=== PATIENT | male | born 1975 | race Caucasian/White ===

== ENCOUNTER → 2018-02-21 | Day surgery (SDC) | payer OTHER, SELFPAY | END | disposition home or self-care (01) | PROVIDERS: Visit Provider Surgery | DX: K42.9 Umbilical hernia without obstruction or gangrene (principal) | CPT/HCPCS: 49585; C1781; J0461; J0690; J1100; J1885; J2250; J2405; J2704; J3010; J8501 ==

== ENCOUNTER → 2018-06-30 13:13 | Outpatient (CLI) | payer OTHER, SELFPAY ==
--- NOTE | 2018-06-30 | DI.US.S_ITS ---
PROCEDURE: US ABDOMEN COMPLETE INDICATIONS: JAUNDICE TECHNIQUE: Real-time scanning was performed of the abdominal and retroperitoneal organs, with image documentation. COMPARISON: None. FINDINGS: Liver: Liver is normal in size and homogeneous in echotexture. Gallbladder: No gallstones identified. Normal gallbladder wall. No pericholecystic fluid. Negative sonographic Green sign. Biliary ducts: Intrahepatic bile ducts are non-dilated. Extrahepatic bile duct caliber measures 5.0 mm. Normal is 6-7 mm or less in diameter, or 10 mm or less post-cholecystectomy. Pancreas: Visualized portions of the pancreas are sonographically normal. Spleen: Spleen is normal in size and homogeneous in echotexture. Kidneys: Kidneys are normal in size and echotexture. Right kidney measures 11.9 cm long; left kidney measures 12.9 cm long. No hydronephrosis or nephrolithiasis. No solid masses. Aorta: Visualized aorta is normal in caliber at less than 3 cm. Iliacs: Proximal common iliac arteries are normal in caliber at less than 2.5 cm. IVC: Intrahepatic inferior vena cava is patent. Miscellaneous: No free abdominal fluid. IMPRESSION: No source for jaundice identified sonographically. Dictated by: Jose OSBORN Interpreted: Hollie Sampson MD on 06/30/2018 at 15:40 Approved by: Patrick Barajas M.D. on 06/30/2018 at 16:22
== END ==
PROVIDERS: Family Provider Family Medicine; PCP Family Medicine; Visit Provider Family Medicine
DX: R17 Unspecified jaundice (principal)
CPT/HCPCS: 76700

== ENCOUNTER → 2021-06-17 10:50 | Outpatient (CLI) | payer OTHER, SELFPAY ==
[2021-06-17 19:46] LABS: COVID19 - ORCAS (NP or Nasal) Negative (Negative)
== END ==
PROVIDERS: Family Provider Family Medicine; PCP Family Medicine; Visit Provider Physician Assistant
DX: Z20.822 Contact with and (suspected) exposure to COVID-19 (principal)
CPT/HCPCS: U0003

== ENCOUNTER → 2021-09-07 09:39 | Outpatient (CLI) | payer OTHER, SELFPAY | PROVIDERS: Family Provider Family Medicine; PCP Physician Assistant; Visit Provider Physician Assistant | DX: T81.49XA Infection following a procedure, other surgical site, initial encounter (principal) | CPT/HCPCS: 87070; 87075; 87077; 87147; 87186; 87205 ==

== ENCOUNTER 2021-09-09 14:25 | Emergency (ER) | payer OTHER, SELFPAY ==
[2021-09-09 15:04] VITALS: BP 129/85; PULSE 76; RESP 18; TEMP 37; O2SAT 99; BMI 32.7
--- NOTE | 2021-09-09 17:51 | DI.CT.S_ITS ---
PROCEDURE: CT ABDOMEN PELVIS W CON INDICATIONS: abscess pubic area TECHNIQUE: After the administration of intravenous contrast, axial sections acquired from the lung bases to the pubic symphysis. Coronal and sagittal reformats were performed. For radiation dose reduction, the following was used: automated exposure control, adjustment of mA and/or kV according to patient size. COMPARISON: None. FINDINGS: Image quality: Excellent. Lung bases: Lung bases are clear. Heart: No significant findings. ABDOMEN: Liver: Unremarkable. Gallbladder: Gallbladder is unremarkable in CT appearance. Biliary ducts: Unremarkable. Pancreas: Unremarkable. Spleen: Unremarkable. Adrenal Glands: Unremarkable. Kidneys and Ureters: Unremarkable. Stomach and Bowel: Stomach, small bowel loops, and colon are unremarkable. Scattered colonic diverticulosis without acute diverticulitis. Peritoneum: No abnormal intraperitoneal fluid. No free air. Ventral Wall: No hernias. In the anterior lower abdominal wall just to the right of midline, there is diffuse skin thickening and moderate subcutaneous soft tissue stranding. There is a focus of superficial, subdermal fluid and gas without organized rim enhancement. It measures approximately 2.6 x 2.0 cm in size. Abdominal Nodes: No retroperitoneal or mesenteric adenopathy by size criteria. Vessels: Aorta and inferior vena cava are normal in size. PELVIS: Pelvic Organs: Unremarkable. Bladder: Unremarkable. Pelvic Nodes: No enlarged lymph nodes. Miscellaneous: No hernias are seen. Surgical clips in the right inguinal region likely from prior hernia repair. Bones: Unremarkable. IMPRESSION: 1. Skin thickening of the anterior lower abdominal wall just to the right of midline and above the inguinal region with moderate subcutaneous soft tissue inflammation. There is a small focus of ill-defined gas leading to the skin surface measuring approximately 2.6 x 2.0 cm in size. No visible organized fluid collection or rim enhancement. This likely represents cellulitis and likely early phlegmon formation. 2. Colonic diverticulosis without acute diverticulitis. Dictated by: Jr Kennedy M.D. on 09/09/2021 at 19:02 Approved by: Jr Kennedy M.D. on 09/09/2021 at 19:11
[2021-09-09 17:54] LABS: Add Manual Diff / Slide Review NO; Basophils Absolute Auto 100 /uL (0-100); Basophils Percent Auto 1.2 % (0-2); Eosinophils Absolute Auto 200 /uL (0-450); Eosinophils Percent Auto 2.5 % (2-4); Hematocrit 40.5 % (41-53); Lymphocytes Absolute Auto 1700 /uL (1100-4500); Lymphocytes Percent Auto 23.9 % (25-40); Mean Corpuscular HGB Conc 34.7 % (30-36); Mean Corpuscular Hemoglobin 31.2 PG (26-34); Mean Corpuscular Volume 90.1 fL (80-100); Monocytes Absolute Auto 600 /uL (0-900); Monocytes Percent Auto 8.1 % (3-14); Neutrophils Absolute Auto 4600 /uL (1500-7000); Neutrophils Percent Auto 64.3 % (50-75); Platelet Count 384 X10^3/uL (150-400); Red Cell Distribution Width 12.5 % (11.6-14.8); White Blood Cell Count 7.2 X10^3/uL (4.5-11.0)
[2021-09-09 18:01] LABS: Alanine Aminotransferase 19 IU/L (<50); Albumin 4.5 g/dL (3.5-5.0); Albumin Globulin Ratio 1.3 (1.0-2.8); Alkaline Phosphatase 53 U/L (38-126); Aspartate Aminotransferase 22 IU/L (17-59); BUN Creatinine Ratio 9.3 (6-22); Bilirubin Total 0.4 mg/dL (0.2-1.3); Blood Urea Nitrogen 10 mg/dL (9-20); Calcium 9.3 mg/dL (8.4-10.2); Carbon Dioxide 27 mmol/L (22-32); Chloride 103 mmol/L (98-107); Estimated Glomerular Filt Rate > 60.0 mL/min (>60); Globulin 3.4 g/dL (1.7-4.1); Glucose 107 mg/dL (70-100); HEMOLYSIS < 15 (0-50); Potassium 4.6 mmol/L (3.4-5.1); Sodium 139 mmol/L (137-145); Total Protein 7.9 g/dL (6.3-8.2)
[2021-09-09 18:02] LABS: Lactate (Lactic Acid) 0.9 mmol/L (0.7-2.1)
[2021-09-09 18:17] LABS: Procalcitonin 0.06 ng/mL (<0.5)
[2021-09-09] MEDS: MORPHINE 4 MG/ML INJ IV (18:18)
[2021-09-09] MEDS: ONDANSETRON 4 MG/2 ML INJ IV (18:18)
[2021-09-09 19:00] VITALS: BP 146/88; PULSE 64; O2SAT 100
--- NOTE | 2021-09-09 19:07 | ED.SKABFB ---
HPI - Skin/Abscess/Foreign Bdy <Beronica Patel, PICKING SUPERVISOR-BC - Last Filed: 09/09/21 20:28> General Chief complaint: Skin/Abscess/Foreign Body Stated complaint: Groin abscess x10 days Time Seen by Provider: 09/09/21 17:10 Source: patient Mode of arrival: Ambulatory Limitations: no limitations History of Present Illness HPI narrative: the patient is a 46-year-old male nonsmoker who presents with a chief complaint of an abscess on his lower stomach. He has a history of hypertension. He went to his primary care provider on 09/07 for an abscess that he noted last week. He states this started as a pimple and then grew. He has no known history of MRSA, had an I and D at that time, was started on Keflex and Bactrim. He denies any fevers nausea vomiting or diarrhea. His abscess is initially at 9 x 7 cm, and had packing placed. He return to the primary care provider's office, his culture resulted as MRSA, resistant to Bactrim. He was sent to the emergency department from the primary care provider's office due to lack of improvement on 2 days of antibiotics. Related Data Home Medications Medication Instructions Recorded Confirmed omega 4-sfy-dpy-fish oil 1,000 mg 1,000 mg PO QDAY #0 02/13/18 (120 mg-180 mg) capsule (Fish Oil) bupropion HCl 150 mg tablet,12 hr 150 mg PO BID 09/07/21 09/07/21 sustained-release Previous Rx's Medication Instructions Recorded varenicline 0.5 mg (11)-1 mg (42) 1 tab PO DIRECTED #1 pkg 02/21/17 tablets in a dose pack (Chantix Starting Month Box) docusate sodium 100 mg capsule 100 mg PO BID #14 cap 02/21/18 (Colace) ondansetron 4 mg disintegrating 4 mg SUBLINGUAL Q6HP PRN #10 odt 02/21/18 tablet (Zofran ODT) oxycodone 5 mg tablet 5 mg PO Q4HP PRN #30 tab 02/21/18 sennosides 8.6 mg tablet (Senokot) 8.6 mg PO QDAY #10 tab 02/21/18 cephalexin 500 mg capsule 500 mg PO QID #28 cap 09/07/21 ibuprofen 800 mg tablet 800 mg PO Q8H PRN #30 tab 09/07/21 sulfamethoxazole 800 1 tab PO Q12H #7 tab 09/07/21 mg-trimethoprim 160 mg tablet (Bactrim DS) doxycycline hyclate 100 mg capsule 100 mg PO BID #20 cap 09/09/21 ketorolac 10 mg tablet 10 mg PO TID PRN 5 Days #15 tab 09/09/21 Allergies Allergy/AdvReac Type Severity Reaction Status Date / Time blueberries Allergy Mild tingling Uncoded 02/21/18 12:00 tongue Review of Systems <ELIO Moran - Last Filed: 09/09/21 20:28> Review of Systems Narrative: GENERAL: Denies chills, fatigue, malaise, fever, sweats. HEENT: Denies sinus pain, ear pain, sore throat, difficulty swallowing, dizziness. RESPIRATORY: Denies dyspnea, cough, wheezing, hemoptysis, sputum. CARDIOVASCULAR: Denies chest pain, palpitations, orthopnea, edema, GASTROINTESTINAL: Denies nausea, vomiting, abdominal pain, diarrhea, constipation, melena. : Denies dysuria, frequency, incontinence, hematuria, urinary retention. MUSCULOSKELETAL: denies weakness, joint pain, or bony pain SKIN: see HPI NEUROLOGIC: Denies weakness, headache, numbness, change in speech, confusion, seizures, incoordination. PSYCHIATRIC: No concerning psychosocial issues. 12 point review of systems is negative except for those stated above Patient History <ELIO Moran - Last Filed: 09/09/21 20:28> Medical History (Updated 09/09/21 @ 20:08 by ELIO Moran) Respiratory infection Screening cholesterol level Social History Smoking Status: Never smoker Smoking Status: Never smoker Substance Use Type: does not use Exam <ELIO Moran - Last Filed: 09/09/21 20:28> Narrative Exam Narrative: GENERAL: This is a well-nourished, well-developed patient, in No acute distress HEAD: Atraumatic. Normocephalic. No temporal or scalp tenderness. EYES: Pupils equal round and reactive. Extraocular motions intact. No scleral icterus. No injection or drainage. ENT: Nose without bleeding, purulent drainage or septal hematoma. wearing a mask. Airway patent. NECK: Trachea midline. No JVD or lymphadenopathy. Supple, nontender, no meningeal signs. CARDIOVASCULAR: Regular rate and rhythm. RESPIRATORY: no cough. No increased respiratory effort. No accessory no muscle use. GASTROINTESTINAL: Abdomen soft, non-tender, nondistended. No hepato-splenomegaly, or palpable masses. EXTREMITIES: No clubbing, cyanosis, or edema. No joint tenderness, effusion, or edema noted. BACK: Nontender without deformity or crepitance. No flank tenderness. NEURO: AOx3. SKIN: Abscess noted in suprapubic area with packing intact, purulent drainage noted, 15 x 9 cm erythema at its largest, outlined in sharpie Initial Vital Signs Initial Vital Signs: Vital Signs Temperature 98.6 F 09/09/21 15:04 Pulse Rate 76 09/09/21 15:04 Respiratory Rate 18 09/09/21 15:04 Blood Pressure 129/85 09/09/21 15:04 Pulse Oximetry 99 09/09/21 15:04 <Haim Shankar DO - Last Filed: 09/10/21 03:27> Initial Vital Signs Initial Vital Signs: Vital Signs Temperature 98.6 F 09/09/21 15:04 Pulse Rate 76 09/09/21 15:04 Respiratory Rate 18 09/09/21 15:04 Blood Pressure 129/85 09/09/21 15:04 Pulse Oximetry 99 09/09/21 15:04 Scores <ELIO Moran - Last Filed: 09/09/21 20:28> GCS [place] coma scale eye opening: Spontaneous [place] coma scale verbal response: Orientated [place] coma scale motor response: Obey commands [place] coma scale total score: 15 qSOFA Altered Mental Status (GCS <15): No Respiratory rate greater than/equal to 22: No Systolic blood pressure less than or equal to 100: No qSOFA Total: 0 0-1 Not High Risk 1-3 High risk <DO Elisa Hogan Last Filed: 09/10/21 03:27> GCS [place] coma scale total score: 15 qSOFA qSOFA Total: 0 Course <ELIO Moran - Last Filed: 09/09/21 20:28> Orders Ordered: ED Orders 09/09/21 18:38 Blood Culture Stat Discontinued Medications Vancomycin HCl/Dextrose (Vancomycin) 2,000 mg in 400 mls @ 200 mls/hr IV NOW ONE Stop: 09/09/21 21:49 Last Infusion: 09/09/21 22:24 Dose: 0 mls/hr Documented by: Admin: 09/09/21 20:21 Dose: 200 mls/hr Documented by: ARASH Ketorolac Tromethamine (Ketorolac 30 Mg/Ml Vial) 30 mg IV NOW ONE Stop: 09/09/21 19:57 Last Admin: 09/09/21 20:21 Dose: 30 mg Documented by: ARASH Morphine Sulfate (Morphine 4 Mg/Ml Inj) 4 mg IV NOW ONE Stop: 09/09/21 18:07 Last Admin: 09/09/21 18:18 Dose: 4 mg Documented by: MARIO Ondansetron HCl (Ondansetron 4 Mg/2 Ml Inj) 4 mg IV NOW ONE Stop: 09/09/21 18:07 Last Admin: 09/09/21 18:18 Dose: 4 mg Documented by: MARIO Vital Signs Vital signs: Vital Signs - 8 hr 09/09/21 20:34 09/09/21 22:46 Pulse Rate 53 L 60 Respiratory Rate 15 16 Blood Pressure 141/71 H 138/71 Pulse Oximetry 97 97 <Haim Shankar DO - Last Filed: 09/10/21 03:27> Orders Ordered: ED Orders 09/09/21 18:38 Blood Culture Stat Discontinued Medications Vancomycin HCl/Dextrose (Vancomycin) 2,000 mg in 400 mls @ 200 mls/hr IV NOW ONE Stop: 09/09/21 21:49 Last Infusion: 09/09/21 22:24 Dose: 0 mls/hr Documented by: Admin: 09/09/21 20:21 Dose: 200 mls/hr Documented by: ARASH Ketorolac Tromethamine (Ketorolac 30 Mg/Ml Vial) 30 mg IV NOW ONE Stop: 09/09/21 19:57 Last Admin: 09/09/21 20:21 Dose: 30 mg Documented by: ARASH Morphine Sulfate (Morphine 4 Mg/Ml Inj) 4 mg IV NOW ONE Stop: 09/09/21 18:07 Last Admin: 09/09/21 18:18 Dose: 4 mg Documented by: MARIO Ondansetron HCl (Ondansetron 4 Mg/2 Ml Inj) 4 mg IV NOW ONE Stop: 09/09/21 18:07 Last Admin: 09/09/21 18:18 Dose: 4 mg Documented by: MARIO Vital Signs Vital signs: Vital Signs - 8 hr 09/09/21 20:34 09/09/21 22:46 Pulse Rate 53 L 60 Respiratory Rate 15 16 Blood Pressure 141/71 H 138/71 Pulse Oximetry 97 97 MDM - Skin/Abscess/Foreign Bdy <TANVIR Moran-BC - Last Filed: 09/09/21 20:28> Differential Diagnosis Differential diagnosis: Likely abscess of skin or subcutaneous tissue Lab Data Attestation: I reviewed the patient's lab results. Result diagrams: 09/09/21 17:28 09/09/21 17:28 Labs: Lab Results 09/09/21 09/09/21 09/09/21 Range/Units 17:28 17:28 17:28 WBC 7.2 (4.5-11.0) X10^3/uL RBC 4.50 (4.5-5.9) X10^6/uL Hgb 14.0 (13.5-17.5) g/dL Hct 40.5 L (41-53) % MCV 90.1 (80-100) fL MCH 31.2 (26-34) PG MCHC 34.7 (30-36) % RDW 12.5 (11.6-14.8) % Plt Count 384 (150-400) X10^3/uL Neut % (Auto) 64.3 (50-75) % Lymph % (Auto) 23.9 L (25-40) % Barron % (Auto) 8.1 (3-14) % Eos % (Auto) 2.5 (2-4) % Baso % (Auto) 1.2 (0-2) % Neut # (Auto) 4600 (7231-9964) /uL Lymph # (Auto) 1700 (1747-9756) /uL Barron # (Auto) 600 (0-900) /uL Eos # (Auto) 200 (0-450) /uL Baso # (Auto) 100 (0-100) /uL Sodium 139 (137-145) mmol/L Potassium 4.6 (3.4-5.1) mmol/L Chloride 103 (98-107) mmol/L Carbon Dioxide 27 (22-32) mmol/L BUN 10 (9-20) mg/dL Creatinine 1.07 (0.66-1.25) mg/dL Estimated GFR > 60.0 (>60) mL/min BUN/Creatinine Ratio 9.3 (6-22) Glucose 107 H (70-100) mg/dL Lactate 0.9 (0.7-2.1) mmol/L Calcium 9.3 (8.4-10.2) mg/dL Total Bilirubin 0.4 (0.2-1.3) mg/dL AST 22 (17-59) IU/L ALT 19 (<50) IU/L Alkaline Phosphatase 53 (38-126) U/L Total Protein 7.9 (6.3-8.2) g/dL Albumin 4.5 (3.5-5.0) g/dL Globulin 3.4 (1.7-4.1) g/dL Albumin/Globulin Ratio 1.3 (1.0-2.8) Procalcitonin 0.06 (<0.5) ng/mL Urine Dip Bedside Urine Glucose Negative Bedside Urine Bilirubin - Negative Bedside Urine Ketone - Negative Urine Specific [place] 1.015 Bedside Urine Occult Blood - Negative Bedside Urine pH 6.0 Bedside Urine Protein - Negative Bedside Urine Urobilinogen - Negative Bedside Urine Nitrite - Negative Bedside Urine Leukocytes - Negative Esterase Imaging Data CT scan - abdomen/pelvis: Radiologist's Impression: [address] [place] [id number] Scan Report Signed Patient: Rodolfo Kelly MR#: [id number] : 1975 Acct:[id number] Age/Sex: 46 / M Date of Service: 09/09/21 Loc: ED Accession Number: [id number] ?? Procedure: CT abdomen pelvis w con [facility]ing [facility]:? CT ABDOMEN PELVIS W CON ? INDICATIONS:? abscess pubic area ? TECHNIQUE:? After the administration of intravenous contrast, axial sections acquired from the lung bases to the pubic symphysis.? Coronal and sagittal reformats were performed.? For radiation dose reduction, the following was used:? automated exposure control, adjustment of mA and/or kV according to patient size.? ? COMPARISON:? None. ? FINDINGS:? Image quality:? Excellent.? ? Lung bases:? Lung bases are clear. Heart:? No significant findings. ? ABDOMEN: Liver:? Unremarkable.? ? Gallbladder:? Gallbladder is unremarkable in CT appearance. Biliary ducts:? Unremarkable.? ? Pancreas:? Unremarkable.? ? Spleen:? Unremarkable.? ? Adrenal Glands:? Unremarkable.? ? Kidneys and Ureters:? Unremarkable.? ? ? Stomach and Bowel:? Stomach, small bowel loops, and colon are unremarkable.? Scattered colonic diverticulosis without acute diverticulitis. Peritoneum:? No abnormal intraperitoneal fluid.? No free air.? ? Ventral Wall: ? No hernias.? In the anterior lower abdominal wall just to the right of midline, there is diffuse skin thickening and moderate subcutaneous soft tissue stranding.? There is a focus of superficial, subdermal fluid and gas without organized rim enhancement.? It measures approximately 2.6 x 2.0 cm in size.? Abdominal Nodes:? No retroperitoneal or mesenteric adenopathy by size criteria.? Vessels:? Aorta and inferior vena cava are normal in size.? ? PELVIS: Pelvic Organs:? Unremarkable.? ? Bladder:? Unremarkable.? ? Pelvic Nodes: No enlarged lymph nodes.? Miscellaneous: No hernias are seen.? Surgical clips in the right inguinal region likely from prior hernia repair. ? ? Bones:? Unremarkable.? IMPRESSION:? ? 1. Skin thickening of the anterior lower abdominal wall just to the right of midline and above the inguinal region with moderate subcutaneous soft tissue inflammation.? There is a small focus of ill-defined gas leading to the skin surface measuring approximately 2.6 x 2.0 cm in size.? No visible organized fluid collection or rim enhancement.? This likely represents cellulitis and likely early phlegmon formation. ? 2. Colonic diverticulosis without acute diverticulitis.? ? ? Dictated by: Jr Kennedy M.D. on 09/09/2021 at 19:02 ? ? Approved by: Jr Kennedy M.D. on 09/09/2021 at 19:11 ? [facility] Narrative Medical decision making narrative: The patient is a 46-year-old male who presents with a chief complaint of an abscess not improving despite p.o. antibiotics. Cultures were reviewed and was noted that he was on antibiotics resistant to his MRSA infection. He appears well, is afebrile, no signs of systemic illness. Lab work is reassuring, no leukocytosis, no elevated procalcitonin, negative lactate. CT was done, which shows no abscess to drain, superficial involvement. Discussed at length with patient we could discharge him with correct p.o. antibiotics versus admit, patient states that he can go to a hotel in come back to the emergency department if he is feeling worse. Discussed case with Dr. Jain, who is in accordance with plan of care. Discussed at length signs of strict return precautions including high fever, inability keep down fluids etcetera. Patient was given a dose of IV vancomycin prior to discharge. He remains feeling well, nontoxic afebrile in the emergency department. he states understanding strict return precautions as well as follow-up care. Discussed keeping his wound clean and dry, no swimming. Patient to dc after IV abx. <Haim Shankar, - Last Filed: 09/10/21 03:27> Lab Data Labs: Lab Results 09/09/21 09/09/21 09/09/21 Range/Units 17:28 17:28 17:28 WBC 7.2 (4.5-11.0) X10^3/uL RBC 4.50 (4.5-5.9) X10^6/uL Hgb 14.0 (13.5-17.5) g/dL Hct 40.5 L (41-53) % MCV 90.1 (80-100) fL MCH 31.2 (26-34) PG MCHC 34.7 (30-36) % RDW 12.5 (11.6-14.8) % Plt Count 384 (150-400) X10^3/uL Neut % (Auto) 64.3 (50-75) % Lymph % (Auto) 23.9 L (25-40) % Barron % (Auto) 8.1 (3-14) % Eos % (Auto) 2.5 (2-4) % Baso % (Auto) 1.2 (0-2) % Neut # (Auto) 4600 (6645-4840) /uL Lymph # (Auto) 1700 (9265-1557) /uL Barron # (Auto) 600 (0-900) /uL Eos # (Auto) 200 (0-450) /uL Baso # (Auto) 100 (0-100) /uL Sodium 139 (137-145) mmol/L Potassium 4.6 (3.4-5.1) mmol/L Chloride 103 (98-107) mmol/L Carbon Dioxide 27 (22-32) mmol/L BUN 10 (9-20) mg/dL Creatinine 1.07 (0.66-1.25) mg/dL Estimated GFR > 60.0 (>60) mL/min BUN/Creatinine Ratio 9.3 (6-22) Glucose 107 H (70-100) mg/dL Lactate 0.9 (0.7-2.1) mmol/L Calcium 9.3 (8.4-10.2) mg/dL Total Bilirubin 0.4 (0.2-1.3) mg/dL AST 22 (17-59) IU/L ALT 19 (<50) IU/L Alkaline Phosphatase 53 (38-126) U/L Total Protein 7.9 (6.3-8.2) g/dL Albumin 4.5 (3.5-5.0) g/dL Globulin 3.4 (1.7-4.1) g/dL Albumin/Globulin Ratio 1.3 (1.0-2.8) Procalcitonin 0.06 (<0.5) ng/mL Urine Dip Bedside Urine Glucose Negative Bedside Urine Bilirubin - Negative Bedside Urine Ketone - Negative Urine Specific Liberty 1.015 Bedside Urine Occult Blood - Negative Bedside Urine pH 6.0 Bedside Urine Protein - Negative Bedside Urine Urobilinogen - Negative Bedside Urine Nitrite - Negative Bedside Urine Leukocytes - Negative Esterase Discharge Plan Departure Patient Disposition: Home Clinical Impression: Cellulitis Qualifiers: Site of cellulitis: trunk Site of cellulitis of trunk: abdominal wall Qualified Code(s): L03.311 - Cellulitis of abdominal wall Abscess of skin or subcutaneous tissue Qualifiers: Site of cutaneous abscess: trunk Site of cutaneous abscess of trunk: abdominal wall Qualified Code(s): L02.211 - Cutaneous abscess of abdominal wall Instructions: DI for Cellulitis -- Adult, DI for Skin Abscess Activity Restrictions/Additional Instructions: thank you for trusting us with your care today. As discussed, your CT is concerning for inflammation and skin infection, but no obvious abscess. We have given you an IV antibiotic tonight, and I sent 2 prescriptions to [facility] in in accordance. Please pick these up in the morning and start your antibiotic pill tomorrow morning. I also sent a prescription of ketorolac or Toradol. Toradol as an NSAID. Do not combine this with any other NSAIDs such as ibuprofen or aleve. Please follow-up with primary care provider tomorrow. As discussed please come back to the emergency department for any acute concerns including inability keep down fluids, high fevers etcetera. Prescriptions: New doxycycline hyclate 100 mg capsule 100 mg PO BID Qty: 20 RF: 0 ketorolac 10 mg tablet 10 mg PO TID PRN (Reason: pain) 5 Days Qty: 15 RF: 0 No Action varenicline [Chantix Starting Month Box] 1 EACH tablets,dose pack 1 tab PO DIRECTED Qty: 1 RF: 0 omega 8-qwc-mfv-fish oil [Fish Oil] 1,000 MG capsule 1,000 mg PO QDAY Qty: 0 RF: 0 docusate sodium [Colace] 100 MG capsule 100 mg PO BID Qty: 14 RF: 1 oxycodone 5 MG tablet 5 mg PO Q4HP PRNQty: 30 RF: 0 sennosides [Senokot] 8.6 MG tablet 8.6 mg PO QDAY Qty: 10 RF: 1 ondansetron [Zofran ODT] 4 MG tablet,disintegrating 4 mg Sublingual Q6HP PRNQty: 10 RF: 1 bupropion HCl 150 mg tablet sustained-release 12 hr 150 mg PO BID RF: 0 sulfamethoxazole-trimethoprim [Bactrim DS] 800-160 mg tablet 1 tab PO Q12H Qty: 7 RF: 0 cephalexin 500 mg capsule 500 mg PO QID Qty: 28 RF: 0 ibuprofen 800 mg tablet 800 mg PO Q8H PRN (Reason: pain) Qty: 30 RF: 0 Referrals: Ludmila Webster PA-C [Primary Care Provider] - <Haim Shankar DO - Last Filed: 09/10/21 03:27> Cosign ED Attending Cospilyature Attestation: I was immediately available in the department for consultation. This documentation has been reviewed and I agree with assessment and plan. Supervised by Haim Shankar DO
[2021-09-09] MEDS: VANCOMYCIN 2,000 MG/400 ML PIGGYBACK 200 MG IV (20:21)
[2021-09-09] MEDS: KETOROLAC 30 MG/ML VIAL IV (20:21)
[2021-09-09 20:34] VITALS: BP 141/71; PULSE 53; RESP 15; O2SAT 97
[2021-09-09 22:46] VITALS: BP 138/71; PULSE 60; RESP 16; O2SAT 97
== END 2021-09-09 22:30 | disposition home or self-care (01) ==
PROVIDERS: Emergency Provider Nurse Practitioner Family; Family Provider Family Medicine; PCP Physician Assistant
DX: L03.311 Cellulitis of abdominal wall (principal); B95.62 Methicillin resistant Staphylococcus aureus infection as the cause of diseases classified elsewhere; L02.211 Cutaneous abscess of abdominal wall
CPT/HCPCS: 36415; 74177; 80053; 81003; 83605; 84145; 85025; 87040; 96365; 96366; 96375; 99284; J1885; J2270; J2405

== ENCOUNTER → 2021-10-13 14:22 | Outpatient (CLI) | payer OTHER, SELFPAY | PROVIDERS: Family Provider Family Medicine; PCP Physician Assistant; Visit Provider Physician Assistant | DX: R23.4 Changes in skin texture (principal) | CPT/HCPCS: 87070; 87075; 87205 ==

== ENCOUNTER → 2021-10-22 08:22 | Outpatient (CLI) | payer OTHER, SELFPAY ==
[2021-10-22 19:22] LABS: Hemoglobin A1C% w Est Avg Glu 5.6 % (4.0-6.0)
[2021-10-22 19:25] LABS: Cholesterol 214 mg/dL (140-199); HDL Cholesterol 38 mg/dL (40-60); LDL Cholesterol Calculated 155 mg/dL (<100); Triglycerides 105 mg/dL (35-150)
== END ==
PROVIDERS: Family Provider Family Medicine; PCP Physician Assistant; Referring Provider Physician Assistant; Visit Provider Physician Assistant
DX: Z13.220 Encounter for screening for lipoid disorders (principal)
CPT/HCPCS: 80061; 83036

== ENCOUNTER → 2022-02-15 10:35 | Outpatient (CLI) | payer OTHER, SELFPAY | PROVIDERS: Family Provider Family Medicine; PCP Physician Assistant; Visit Provider Family Medicine | DX: R10.9 Unspecified abdominal pain (principal) | CPT/HCPCS: 87086 ==

== ENCOUNTER → 2022-06-24 08:13 | Outpatient (CLI) | payer SELFPAY ==
[2022-06-24 19:58] LABS: Add Manual Diff / Slide Review NO; Basophils Absolute Auto 100 /uL (0-100); Basophils Percent Auto 0.9 % (0-2); Eosinophils Absolute Auto 300 /uL (0-450); Eosinophils Percent Auto 5.2 % (2-4); Hematocrit 42.8 % (41-53); Hemoglobin 14.6 g/dL (13.5-17.5); Lymphocytes Absolute Auto 1900 /uL (1100-4500); Lymphocytes Percent Auto 32.1 % (25-40); Mean Corpuscular HGB Conc 34.2 % (30-36); Mean Corpuscular Hemoglobin 30.9 PG (26-34); Mean Corpuscular Volume 90.4 fL (80-100); Monocytes Absolute Auto 400 /uL (0-900); Neutrophils Absolute Auto 3200 /uL (1500-7000); Neutrophils Percent Auto 54.8 % (50-75); Platelet Count 320 X10^3/uL (150-400); Red Blood Cell Count 4.73 X10^6/uL (4.5-5.9); Red Cell Distribution Width 12.7 % (11.6-14.8); White Blood Cell Count 5.9 X10^3/uL (4.5-11.0)
[2022-06-24 20:01] LABS: Cholesterol 185 mg/dL (140-199); HDL Cholesterol 34 mg/dL (40-60); LDL Cholesterol Calculated 137 mg/dL (<100); Triglycerides 69 mg/dL (35-150)
== END ==
PROVIDERS: Family Provider Family Medicine; PCP Physician Assistant; Visit Provider Physician Assistant Medical
DX: D64.9 Anemia, unspecified (principal); E78.5 Hyperlipidemia, unspecified; L08.9 Local infection of the skin and subcutaneous tissue, unspecified; L85.3 Xerosis cutis
CPT/HCPCS: 80061; 85025

== ENCOUNTER → 2023-01-13 14:11 | Outpatient (CLI) | payer SELFPAY ==
[2023-01-13 19:50] LABS: Alanine Aminotransferase 36 IU/L (<50); Albumin 4.4 g/dL (3.5-5.0); Albumin Globulin Ratio 1.5 (1.0-2.8); Alkaline Phosphatase 57 U/L (38-126); Aspartate Aminotransferase 33 IU/L (17-59); BUN Creatinine Ratio 10.8 (6-22); Bilirubin Total 0.6 mg/dL (0.2-1.3); Blood Urea Nitrogen 11 mg/dL (9-20); Calcium 8.9 mg/dL (8.4-10.2); Carbon Dioxide 26 mmol/L (22-32); Chloride 103 mmol/L (98-107); Estimated Glomerular Filt Rate > 60 mL/min (>60); Globulin 2.9 g/dL (1.7-4.1); Glucose 126 mg/dL (70-100); HEMOLYSIS < 15 (0-50); Potassium 4.1 mmol/L (3.4-5.1); Sodium 140 mmol/L (137-145); Total Protein 7.3 g/dL (6.3-8.2)
[2023-01-13 20:04] LABS: Hemoglobin A1C% w Est Avg Glu 5.7 % (4.0-6.0)
== END ==
PROVIDERS: Family Provider Family Medicine; PCP Physician Assistant; Visit Provider Physician Assistant
DX: B35.1 Tinea unguium (principal); R73.03 Prediabetes
CPT/HCPCS: 80053; 83036

== ENCOUNTER → 2023-01-28 13:16 | Outpatient (CLI) | payer SELFPAY ==
--- NOTE | 2023-02-04 12:02 | PM.PFT.1 ---
Pulmonary Function Test Referral & Results Date Patient Seen: 01/28/23 Results: The spirometry demonstrates an FVC of 5.03 L which is 88% of predicted. The FEV1 was measured at 4.14 L which is 93% of predicted. The FEV1/FVC ratio was 82 which is 105% of predicted. Following the administration of bronchodilator there was a 42% improvement in FEF 25-75%. Lung volumes show an SVC of 5.82 L which is 107% of predicted. The diffusing capacity was measured at 41.09 which is 112% of predicted. The maximum voluntary ventilation was minimally reduced Interpretation: This study demonstrates probably normal pulmonary function. There may be a minimal reduction in maximum voluntary ventilation which in the absence of any other abnormalities might suggest the presence of some element of neuromuscular disease Clinical correlation suggested
== END ==
PROVIDERS: Family Provider Family Medicine; PCP Family Medicine; Referring Provider Physician Assistant; Visit Provider Physician Assistant
DX: R06.2 Wheezing (principal); J98.8 Other specified respiratory disorders
CPT/HCPCS: 94060; 94726; 94729

== ENCOUNTER → 2023-08-25 09:27 | Outpatient (CLI) | payer SELFPAY ==
[2023-08-25 21:36] LABS: Creatinine Urine Random 221.1 mg/dL; Protein (Total) Urine Random 25 mg/dL (0-12); Protein Creatinine Ratio Urine 0.11 GRAM/24H
== END ==
PROVIDERS: Family Provider Family Medicine; PCP Family Medicine; Visit Provider Family Medicine
DX: I10 Essential (primary) hypertension (principal); R80.9 Proteinuria, unspecified
CPT/HCPCS: 82570; 84156

== ENCOUNTER → 2023-12-27 08:21 | Outpatient (CLI) | payer SELFPAY ==
[2023-12-27 19:44] LABS: Protein (Total) Urine Random 10 mg/dL (0-12)
[2023-12-27 20:29] LABS: Protein Creatinine Ratio Urine 0.01 GRAM/24H
== END ==
PROVIDERS: Family Provider Family Medicine; PCP Family Medicine; Visit Provider Family Medicine
DX: R80.9 Proteinuria, unspecified (principal); I10 Essential (primary) hypertension
CPT/HCPCS: 82570; 84156

== ENCOUNTER → 2023-12-29 09:49 | Outpatient (CLI) | payer SELFPAY ==
[2023-12-29 19:25] LABS: Hemoglobin A1C% w Est Avg Glu 5.5 % (4.0-6.0)
[2023-12-29 19:30] LABS: Add Manual Diff / Slide Review NO; Basophils Absolute Auto 0 /uL (0-100); Basophils Percent Auto 0.6 % (0-2); Eosinophils Absolute Auto 200 /uL (0-450); Eosinophils Percent Auto 3.6 % (2-4); Hematocrit 46.1 % (41-53); Hemoglobin 15.9 g/dL (13.5-17.5); Lymphocytes Absolute Auto 1800 /uL (1100-4500); Lymphocytes Percent Auto 35.1 % (25-40); Mean Corpuscular HGB Conc 34.4 % (30-36); Mean Corpuscular Hemoglobin 31.3 PG (26-34); Mean Corpuscular Volume 91.1 fL (80-100); Monocytes Absolute Auto 300 /uL (0-900); Monocytes Percent Auto 6.4 % (3-14); Neutrophils Absolute Auto 2900 /uL (1500-7000); Neutrophils Percent Auto 54.3 % (50-75); Platelet Count 282 X10^3/uL (150-400); Red Blood Cell Count 5.07 X10^6/uL (4.5-5.9); Red Cell Distribution Width 12.8 % (11.6-14.8); White Blood Cell Count 5.3 X10^3/uL (4.5-11.0)
[2023-12-29 19:36] LABS: Alanine Aminotransferase 37 IU/L (<50); Albumin 4.6 g/dL (3.5-5.0); Albumin Globulin Ratio 1.6 (1.0-2.8); Alkaline Phosphatase 59 U/L (38-126); Aspartate Aminotransferase 62 IU/L (17-59); BUN Creatinine Ratio 12.5 (6-22); Bilirubin Total 0.9 mg/dL (0.2-1.3); Blood Urea Nitrogen 17 mg/dL (9-20); Calcium 9.4 mg/dL (8.4-10.2); Carbon Dioxide 28 mmol/L (22-32); Chloride 106 mmol/L (98-107); Cholesterol 195 mg/dL (140-199); Estimated Glomerular Filt Rate > 60 mL/min (>60); Globulin 2.8 g/dL (1.7-4.1); Glucose 101 mg/dL (70-100); HDL Cholesterol 29 mg/dL (40-60); HEMOLYSIS < 15 (0-50); LDL Cholesterol Calculated 146 mg/dL (<100); Potassium 4.8 mmol/L (3.4-5.1); Sodium 139 mmol/L (137-145); Total Protein 7.4 g/dL (6.3-8.2); Triglycerides 100 mg/dL (35-150)
[2023-12-29 19:56] LABS: TSH w/ Reflex to FT4 1.72 uIU/mL (0.47-4.68)
== END ==
PROVIDERS: Family Provider Family Medicine; PCP Family Medicine; Visit Provider Family Medicine
DX: I10 Essential (primary) hypertension (principal); R80.9 Proteinuria, unspecified; R73.03 Prediabetes; E78.5 Hyperlipidemia, unspecified
CPT/HCPCS: 80053; 80061; 83036; 84443; 85025

== ENCOUNTER → 2024-05-15 10:59 | Outpatient (CLI) | payer SELFPAY ==
[2024-05-15 21:10] LABS: Alanine Aminotransferase 30 IU/L (<50); Albumin 4.5 g/dL (3.5-5.0); Albumin Globulin Ratio 1.6 (1.0-2.8); Alkaline Phosphatase 62 U/L (38-126); Aspartate Aminotransferase 32 IU/L (17-59); Bilirubin Total 0.6 mg/dL (0.2-1.3); Blood Urea Nitrogen 20 mg/dL (9-20); Calcium 9.3 mg/dL (8.4-10.2); Carbon Dioxide 26 mmol/L (22-32); Chloride 107 mmol/L (98-107); Globulin 2.8 g/dL (1.7-4.1); Glucose 86 mg/dL (70-100); Potassium 4.7 mmol/L (3.4-5.1); Sodium 140 mmol/L (137-145); Total Protein 7.3 g/dL (6.3-8.2)
[2024-05-15 21:17] LABS: BUN Creatinine Ratio 12.2 (6-22); Estimated Glomerular Filt Rate 52 mL/min (>60); HEMOLYSIS 26 (0-50)
[2024-05-15 21:43] LABS: Ferritin 123 ng/mL (18-464)
[2024-05-15 22:23] LABS: HEMOLYSIS 16 (0-50); Iron 112 ug/dL (49-181)
[2024-05-15 22:37] LABS: Percent Iron Saturation 38 % (20-50); Total Iron Binding Capacity 296 ug/dL (261-462)
[2024-05-17 00:22] LABS: Hepatitis B Surf Ab Qualitativ Reactive (.)
== END ==
PROVIDERS: Family Provider Family Medicine; PCP Family Medicine; Referring Provider Family Medicine; Visit Provider Family Medicine
DX: I10 Essential (primary) hypertension (principal); R74.01 Elevation of levels of liver transaminase levels; G47.10 Hypersomnia, unspecified; J30.2 Other seasonal allergic rhinitis
CPT/HCPCS: 80053; 82728; 83540; 83550; 86704; 86706; 86803; 87340

== ENCOUNTER → 2024-08-23 08:38 | Outpatient (CLI) | payer SELFPAY ==
[2024-08-23 20:32] LABS: Alanine Aminotransferase 35 IU/L (<50); Albumin 4.3 g/dL (3.5-5.0); Albumin Globulin Ratio 1.5 (1.0-2.8); Alkaline Phosphatase 66 U/L (38-126); Aspartate Aminotransferase 48 IU/L (17-59); Bilirubin Total 0.7 mg/dL (0.2-1.3); Blood Urea Nitrogen 20 mg/dL (9-20); Calcium 9.3 mg/dL (8.4-10.2); Carbon Dioxide 25 mmol/L (22-32); Chloride 104 mmol/L (98-107); Globulin 2.8 g/dL (1.7-4.1); Glucose 88 mg/dL (70-100); HEMOLYSIS 45 (0-50); Potassium 4.4 mmol/L (3.4-5.1); Sodium 138 mmol/L (137-145); Total Protein 7.1 g/dL (6.3-8.2)
[2024-08-23 20:38] LABS: BUN Creatinine Ratio 12.3 (6-22); Estimated Glomerular Filt Rate 52 mL/min (>60)
[2024-08-23 20:55] LABS: Creatinine Urine Random 236.06 mg/dL; Protein (Total) Urine Random 36 mg/dL (0-12); Protein Creatinine Ratio Urine 0.15 GRAM/24H
== END ==
PROVIDERS: Family Provider Family Medicine; PCP Family Medicine; Visit Provider Family Medicine
DX: R94.4 Abnormal results of kidney function studies (principal); R74.01 Elevation of levels of liver transaminase levels; R80.9 Proteinuria, unspecified; I10 Essential (primary) hypertension; E78.00 Pure hypercholesterolemia, unspecified; R73.03 Prediabetes
CPT/HCPCS: 80053; 82570; 84156

== ENCOUNTER → 2025-02-26 11:00 | Outpatient (CLI) | payer SELFPAY ==
[2025-02-26 19:14] LABS: Alanine Aminotransferase 75 IU/L (<50); Albumin 4.9 g/dL (3.5-5.0); Alkaline Phosphatase 60 U/L (38-126); Aspartate Aminotransferase 47 IU/L (17-59); Bilirubin Total 0.4 mg/dL (0.2-1.3); Blood Urea Nitrogen 22 mg/dL (9-20); Calcium 9.5 mg/dL (8.4-10.2); Carbon Dioxide 22 mmol/L (22-32); Chloride 105 mmol/L (98-107); Globulin 2.5 g/dL (1.7-4.1); Glucose 88 mg/dL (70-99); Potassium 4.6 mmol/L (3.4-5.1); Sodium 140 mmol/L (137-145); Total Protein 7.4 g/dL (6.3-8.2)
[2025-02-26 19:16] LABS: Hemoglobin A1C% w Est Avg Glu 5.3 % (4.0-6.0)
[2025-02-26 19:20] LABS: BUN Creatinine Ratio 15.5 (6-22); Estimated Glomerular Filt Rate > 60 mL/min (>60); HEMOLYSIS 37 (0-50)
[2025-02-26 19:23] LABS: Appearance Urine UA CLEAR; Bilirubin Urine UA NEGATIVE (NEGATIVE); Color Urine UA YELLOW; Glucose Urine UA NEGATIVE (Negative); Ketones Urine UA TRACE (NEGATIVE); Leukocyte Esterase Urine UA NEGATIVE (NEGATIVE); Nitrite Urine UA NEGATIVE (Negative); Occult Blood Urine UA NEGATIVE (Negative); Protein Urine UA NEGATIVE (Negative); Specific Gravity Urine UA 1.025 (1.000-1.035); Urobilinogen Urine UA 0.2 E.U./dL (0.2)
[2025-02-26 19:33] LABS: Bacteria Urine None Seen; RBC Urine None Seen (0-5/HPF); Squamous Epithelial Cell Urine 0-1 /HPF (0-5/HPF); Urine Volume 10mL (spun); WBC Urine None Seen (0-5/HPF)
[2025-02-26 19:34] LABS: Culture Indicated Urine Cult Not Indicated
[2025-02-26 20:03] LABS: Protein (Total) Urine Random 14 mg/dL (0-12)
[2025-02-26 20:21] LABS: Creatinine Urine Random 92.81 mg/dL; Protein Creatinine Ratio Urine 0.15 GRAM/24H
== END ==
PROVIDERS: PCP Family Medicine; Visit Provider Family Medicine
DX: R94.4 Abnormal results of kidney function studies (principal); R80.9 Proteinuria, unspecified; I10 Essential (primary) hypertension; R25.2 Cramp and spasm; R74.01 Elevation of levels of liver transaminase levels; R73.03 Prediabetes
CPT/HCPCS: 80053; 81001; 82570; 83036; 84156

== ENCOUNTER → 2025-08-23 08:29 | Outpatient (CLI) | payer SELFPAY ==
[2025-08-23 20:37] LABS: Microalbumi Creatinin Ratio Ur 6.0 ug/mg CR (<30)
== END ==
PROVIDERS: PCP Family Medicine; Visit Provider Family Medicine
DX: R73.03 Prediabetes (principal)
CPT/HCPCS: 82043; 82570

== ENCOUNTER → 2025-08-26 10:44 | Outpatient (CLI) | payer SELFPAY ==
[2025-08-26 19:11] LABS: Add Manual Diff / Slide Review NO; Hematocrit 46.7 % (41-53); Hemoglobin 16.0 g/dL (13.5-17.5); Lymphocytes Absolute Auto 2400 /uL (1100-4500); Mean Corpuscular HGB Conc 34.2 % (30-36); Mean Corpuscular Hemoglobin 31.4 PG (26-34); Mean Corpuscular Volume 91.9 fL (80-100); Platelet Count 283 X10^3/uL (150-400)
[2025-08-26 19:27] LABS: Alanine Aminotransferase 37 IU/L (<50); Albumin 4.7 g/dL (3.5-5.0); Albumin Globulin Ratio 1.7 (1.0-2.8); Alkaline Phosphatase 58 U/L (38-126); Blood Urea Nitrogen 15 mg/dL (9-20); Calcium 9.6 mg/dL (8.4-10.2); Carbon Dioxide 29 mmol/L (22-32); Chloride 103 mmol/L (98-107); Cholesterol 203 mg/dL (140-199); Estimated Glomerular Filt Rate > 60 mL/min (>60); Globulin 2.8 g/dL (1.7-4.1); Glucose 105 mg/dL (70-99); HDL Cholesterol 33 mg/dL (40-60); HEMOLYSIS 23 (0-50); Potassium 4.8 mmol/L (3.4-5.1); Sodium 140 mmol/L (137-145); Total Protein 7.5 g/dL (6.3-8.2); Triglycerides 141 mg/dL (35-150)
[2025-08-26 19:35] LABS: Hemoglobin A1C% w Est Avg Glu 5.6 % (4.0-6.0)
== END ==
PROVIDERS: PCP Family Medicine; Visit Provider Family Medicine
DX: R74.01 Elevation of levels of liver transaminase levels (principal); I10 Essential (primary) hypertension; E78.00 Pure hypercholesterolemia, unspecified; R73.03 Prediabetes; R80.9 Proteinuria, unspecified; R94.4 Abnormal results of kidney function studies
CPT/HCPCS: 80053; 80061; 83036; 85025; 86038